=== PATIENT | female | born 1965 | race African-American/Black ===

== ENCOUNTER → 2016-12-06 | Outpatient (CLI) | payer BC ==
--- NOTE | ~2016-12-06 | MR18 ---
[facility] A Service [facility] RADIOLOGY TEXT RESULTS PATIENT: KAJAL LEAL LOCATION: [facility] : 67 UNIT #: [id number] AGE: [address]: BRANDY NEGRO APRN SEX: F ORDER DR: [id number] [facility] [address] [place], [place] [address] [id number] O MR#: [id number] Acc #: [id number] NAME: KAJAL LEAL. : 1965 SEX: F STUDY DATE/TIME: 12/06/2016 18:10 UNIT: [facility] ROOM: STUDY DESCRIPTION: MR Brain Wo Contrast Attending Physician: Brandy Negro Np Primary Care Physician: Michelle Cloud M.D. MRI CENTER REPORT This report is preliminary unless electronic signature is present. EXAM MRI of the brain without contrast dated 12/06/2016. COMPARISON CT head without contrast dated 11/29/2016. HISTORY Migraines for several years, getting worse over the last 2 months. FINDINGS Multisequence multiplanar imaging of the brain was obtained without contrast. Nonspecific hyperintense T2-signal lesions are noted in the bifrontal subcortical white matter and yuridia. No acute stroke, space-occupying intracranial mass, mass effect, midline shift or hydrocephalus. Thick slices through the sella with the pituitary gland, pineal region and upper cervical spine are within normal limits. Vascular flow voids of the major cerebral arteries and dural venous sinuses are not obstructed in these thicker slices. IMPRESSION 1. Tiny few nonspecific hyperintense T2-signal lesions are noted in the white matter, likely related to minimal chronic microvascular ischemic change or migraine based on age and statistics. It is nonspecific. 2. No acute stroke, intracranial hemorrhage, space-occupying mass, hydrocephalus or midline shift. Dictated by... Damian Chapman M.D. THIS IS AN ELECTRONICALLY VERIFIED REPORT Damian Chapman M.D. at 12/10/2016 3:30 PM CPR/pc [facility] A Service of [facility] RADIOLOGY TEXT RESULTS PATIENT: KAJAL LEAL LOCATION: [facility] : 67 UNIT #: [id number] AGE: [address]: BRANDY NEGRO APRN SEX: F ORDER DR: TD: 12/09/2016 13:54 JOB #: [id number] MRI CENTER REPORT COPY
== END | disposition home or self-care (01) ==
LOC: CMRI 17:32
DX: G43.001 Migraine without aura, not intractable, with status migrainosus (principal); R90.82 White matter disease, unspecified
CPT/HCPCS: 70551

== ENCOUNTER → 2017-04-28 | Outpatient (CLI) | payer BC ==
--- NOTE | ~2017-04-28 | MY29 ---
[facility] A Service of [facility] RADIOLOGY TEXT RESULTS PATIENT: KAJAL LEAL LOCATION: [facility] : 66 UNIT #: [id number] AGE: [address]: Michelle Cloud MD SEX: F ORDER DR: [id number] [facility] [address] [place], [place] [address] [id number] O MR#: [id number] Acc #: [id number] NAME: KAJAL LEAL : 1965 SEX: F STUDY DATE/TIME: 04/28/2017 17:06 UNIT: [facility] ROOM: STUDY DESCRIPTION: MY FELICIA SCREENING W/ CAD BILAT Attending Physician: Michelle Cloud M.D. Referring Physician: Michelle Cloud M.D. Ordering Physician: Michelle Cloud M.D. Primary Care Physician: Michelle Cloud M.D. MEDICAL IMAGING REPORT This report is preliminary unless electronic signature is present EXAM Bilateral digital screening mammogram with CAD 04/28/2017 INDICATIONS A 51-year-old female for routine screening. No reported problems and no personal history of breast cancer. Family history is positive in the patient's mother and a grandmother. No surgeries. TECHNIQUE CC and MLO views of the breasts were obtained and reviewed with an FDA approved CAD device. COMPARISON STUDIES 04/26/2016, 04/21/2015, 04/15/2014. FINDINGS Breast parenchyma is heterogeneously dense. This degrades sensitivity of screening mammography. The pattern is unchanged. There is no new dominant nodule mass or suspicious cluster of microcalcifications. A few scattered benign appearing calcifications are present. IMPRESSION Benign screening mammogram 1 year followup recommended. Patients over the age of 40 are entered into a reminder system with target due date for the next mammogram. BIRADS: [address] [facility] A Service of [facility] RADIOLOGY TEXT RESULTS PATIENT: KAJAL LEAL LOCATION: [facility] : 67 UNIT #: [id number] AGE: [address]: Michelle Cloud MD SEX: F ORDER DR: Dictated by... Doyle Sanford M.D. THIS IS AN ELECTRONICALLY VERIFIED REPORT Doyle Sanford M.D. at 04/30/2017 1:44 PM GILES/jacqui TD: 04/29/2017 14:19 JOB #: [id number] MEDICAL IMAGING REPORT Page 1 of 1 COPY
== END | disposition home or self-care (01) ==
LOC: CWCC 16:42
DX: Z12.31 Encounter for screening mammogram for malignant neoplasm of breast (principal); Z80.3 Family history of malignant neoplasm of breast
CPT/HCPCS: G0202